=== PATIENT | female | born 2000 | race Caucasian/White ===

== ENCOUNTER 2023-05-05 20:43 | Emergency (ER) | payer OTHER, SELFPAY ==
[2023-05-05 21:10] VITALS: BP 120/83; PULSE 100; RESP 16; TEMP 36.4; O2SAT 100
[2023-05-05 22:28] LABS: Appearance Urine Clear (Clear); Bacteria Urine None Seen /hpf; Bilirubin Urine Negative (Negative); Blood Urine 2+ (Negative); Color Urine Yellow (Yellow); Glucose Urine UA 2+ mg/dL (Negative); Ketones Urine Negative (Negative); Leukocyte Esterase Ur Trace LEU/UL (Negative); Need Manual Microscopic Reviewed; Nitrate Urine Negative (Negative); Non Pathogenic Casts 0-2; Protein Urine Negative (Negative); Specific Grav Ur 1.007 (1.001-1.035); Squamous Epithelial Cell Urine Occasional /hpf (Few); Urobilinogen Urine 0.2 mg/dL (<2.0); WBC Urine 0-5 /hpf
[2023-05-05 22:29] LABS: Add Urine Microscopic? YES
== END 2023-05-06 00:41 | disposition left against medical advice (07) ==
LOC: ANHED 05-06 00:39
PROVIDERS: Emergency Provider Emergency Medicine
DX: N93.9 Abnormal uterine and vaginal bleeding, unspecified (principal)
CPT/HCPCS: 81001; 81025; 99199

== ENCOUNTER 2024-04-29 12:34 | Emergency (ER) | payer OTHER, SELFPAY ==
[2024-04-29 12:41] VITALS: BP 104/65; PULSE 125; RESP 20; TEMP 37.7; O2SAT 100
--- NOTE | 2024-04-29 12:43 | ED.GENADULT ---
HPI - General Adult General Chief complaint: Upper Respiratory Infection Stated complaint: Congestion/Sinus Pressure/Fever Time Seen by Provider: 04/29/24 12:43 Source: patient, RN notes reviewed and old records reviewed Mode of arrival: ambulatory Limitations: no limitations History of Present Illness HPI narrative: 23-year-old female to [facility] Care with complaint of body aches, fever, postnasal drainage since yesterday. Patient rating body aches 04/08. 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 Patient denies shortness of breath, chest pain, nausea, vomiting, diarrhea, abdominal pain. Patient tachycardic and febrile in triage. Patient able tolerate fluids by mouth. Patient resting comfortably in exam room, appearing acutely ill. Respirations even and nonlabored. Patient in no acute distress. Related Data Home Medications Medication Instructions Recorded Confirmed insulin lispro 100 unit/mL 04/29/24 subcutaneous solution (Humalog U-100 Insulin) norethindrone 1 mg-ethinyl tablet 04/29/24 estradiol 20 mcg (24)-iron 75 mg (4) tablet (Aurovela 24 Fe) secukinumab 300 mg/2 mL (150 mg subcut 04/29/24 mg/mL) subcutaneous pen injector (Cosentyx UnoReady Pen) sertraline 50 mg tablet mg 04/29/24 04/29/24 Allergies Allergy/AdvReac Type Severity Reaction Status Date / Time amoxicillin Allergy Hives Verified 04/29/24 12:37 Sulfa (Sulfonamide Allergy Hives Verified 04/29/24 12:37 Antibiotics) sulfamethoxazole Allergy Hives Verified 04/29/24 12:37 [From Bactrim] trimethoprim [From Bactrim] Allergy Hives Verified 04/29/24 12:37 Review of Systems Review of Systems: All systems reviewed & are unremarkable except as noted in HPI and below Constitutional: Constitutional: Reports as per HPI, Reports body ache(s) and Reports fever(s) Eyes: Eyes: Reports no additional eye complaints ENT: Reports as per HPI and Reports post nasal drip Cardiovascular: Cardiovascular: Reports no additional cardiovascular complaints, Denies chest pain and Denies dyspnea Respiratory: Respiratory: Reports no additional respiratory complaints, Denies cough and Denies dyspnea Musculoskeletal: Musculoskeletal: Reports as per HPI and Reports myalgias Neurologic: Reports system reviewed and no additional complaints, except as documented Psychiatric: Psychiatric: Reports no additional psychiatric complaints PMFSH Comments At the time of my signature, I reviewed and agree with the nursing past medical, surgical, social, and family history. There is no relevant family history pertinent to the patient complaint. Exam Const: General: cooperative, no acute distress, alert, ill appearing acutely, tired appearing, uncomfortable and well nourished Nutritional Appearance: well nourished Orientation/consciousness: patient oriented x3 Limitations: no limitations HENMT: Head: normal to inspection Ears: external ears normal and TM abnormal erythematous bilateral Face/Nose/Sinus: Normal external nose present, Normal nares present, normal facial exam, No erythema and No edema Face and sinus: normal facial exam, no erythema and no edema Mouth: Yes Normal oral and palatal mucosa present Throat: posterior oropharynx abnormal erythema and postnasal drainage Eyes: General: appearance normal, both eyes and all related structures Neck: Neck: normal visual inspection, full ROM and no meningeal signs Lymphatic: no lymphadenopathy noted and no lymphedema noted Chest: Chest palpation & inspection: normal inspection of the chest Resp: Effort & Inspection: normal respiratory effort and able to speak in complete sentences Auscultation: clear to auscultation bilaterally Cardio: Jugular venous distension: no JVD Rate: regular rate Rhythm: regular rhythm Back/Spine/Pelvis: Cervical Spine: cervical ROM normal Skin: General skin exam: normal color, no rashes or lesions noted and turgor normal Neuro: General: pa
== END 2024-04-29 13:19 | disposition home or self-care (01) ==
PROVIDERS: Emergency Provider Nurse Practitioner Family
DX: U07.1 COVID-19 (principal); H66.93 Otitis media, unspecified, bilateral; Z20.822 Contact with and (suspected) exposure to COVID-19; E11.9 Type 2 diabetes mellitus without complications; Z79.4 Long term (current) use of insulin; Z96.41 Presence of insulin pump (external) (internal); F41.9 Anxiety disorder, unspecified
CPT/HCPCS: 87426; 99213; G0463

== ENCOUNTER 2025-02-19 11:46 | Emergency (ER) | payer OTHER, SELFPAY ==
[2025-02-19 11:50] VITALS: BP 112/68; PULSE 120; RESP 14; TEMP 36.9; O2SAT 100
--- NOTE | 2025-02-19 11:54 | ED.URI ---
HPI - URI/Sore Throat General Chief Complaint: Upper Respiratory Infection Stated Complaint: bad cough Time Seen by Provider: 02/19/25 11:55 Source: patient and RN notes reviewed Mode of arrival: ambulatory Limitations: no limitations History of Present Illness HPI Narrative: 44-year-old female who is 5 months presents with concern for cough. Reports cough for 3 weeks. Reports she started getting a fever yesterday. She reports the cough got worse in the last 2 days. She reports some runny nose and stuffy nose, denies sore throat. She reports a history of asthma as a child. Denies any shortness of breath currently or in the last 3 weeks. MD elicited complaint: cough Related Data Home Medications ?Medication ?Instructions ?Recorded ?Confirmed ?Last Taken ?Type insulin lispro 100 unit/mL 04/29/24 Unknown History subcutaneous solution (Humalog U-100 Insulin) sertraline 50 mg tablet mg 04/29/24 04/29/24 Unknown History 02/19/25 Unknown History insulin glargine 100 unit/mL unit subcut 02/19/25 Unknown History subcutaneous solution (Lantus U-100 Insulin) Allergies Allergy/AdvReac Type Severity Reaction Status Date / Time amoxicillin Allergy Hives Verified 02/19/25 11:55 Sulfa (Sulfonamide Allergy Hives Verified 02/19/25 11:55 Antibiotics) sulfamethoxazole (From Allergy Hives Verified 02/19/25 11:55 Bactrim) trimethoprim (From Bactrim) Allergy Hives Verified 02/19/25 11:55 Review of Systems Review of Systems: CONSTITUTIONAL: Denies malaise, chills, sweats. Reports fever. EYES: Denies visual changes, redness, or discharge. ENT: Reports rhinorrhea, congestion. Denies sinus pain, otalgia and sore throat. CARDIOVASCULAR: Denies chest pain, palpitations, or edema. RESPIRATORY: Reports cough. Denies dyspnea. GASTROINTESTINAL: Denies abdominal pain, nausea, vomiting, diarrhea SKIN: Denies rash or itching. MUSCULOSKELETAL: Denies myalgia. NEUROLOGIC: Denies headache. All systems reviewed & are unremarkable except as noted in HPI and below PMFSH Comments At time of signature, agree with nursing past medical, surgical, social and family history. There is no relevant family history pertinent to the presenting complaint Exam Narrative: GENERAL: Well-appearing, well-nourished, and in no acute distress. HEAD: Normocephalic EYES: PERRLA, conjunctivae clear ENT: Nares clear. Mucous membranes moist. TM pearly unger with dull light reflex bilaterally; no tragal tenderness. Oropharynx not erythematous without lesions. Tonsils not enlarged and without exudate, no drooling, no hoarseness, no trismus, uvula midline. NECK: Supple. No lymphadenopathy CHEST: Scattered wheeze and scattered rhonchi, breath sounds equal. No rales, or stridor. No respiratory distress, speaks in full sentences. HEART: Regular rate and rhythm. No murmur heard. SKIN: Warm, dry, no rash. NEURO: Alert and oriented x3. PSYCH: Normal mood and affect Course Course Emergency Course: Patient is aware of diagnosis, understands and agrees to treatment plan. Anticipatory guidance given. Patient agrees to follow-up as directed and is aware of reasons to seek care at the emergency department. Portions of this record may have been created with voice recognition software Level of Care: Express Care Visit Vital Signs Vital signs: Reviewed. MDM - URI/Sore Throat MDM Narrative Medical decision making narrative: Differential diagnosis considered: Smith virus, strep pharyngitis, allergic rhinitis, upper respiratory tract infection, sinusitis, rhinosinusitis, nasopharyngitis. viral pharyngitis, otitis media, otitis externa, pneumonia, bronchitis, viral cough syndrome, viral syndrome, and influenza. Exam findings show no acute concerns or changes; patient is non-toxic appearing and is in no distress. Patient is appropriate for outpatient treatment and follow-up. Lab Data Attestation: I reviewed the patient's lab results. Critical Care Time Critical Care Time Critical Care Time: No Discharge Plan Discharge Clinical Impression: Lower respiratory tract infection Patient Disposition: Home Condition: Stable Instructions: Antibiotic Form, How to Use a Metered-Dose Inhaler (ED) Additional Instructions: Take medication as prescribed Recommend antihistamine such as Zyrtec or Zoei during the day Use inhaler as needed for cough, wheezing, shortness of breath or chest tightness. Also, recommend symptomatic treatment includes: rest, fluids, and increase humidity of the air at home. Recommend Acetaminophen as directed on the bottle to reduce fever, pain, headache. Avoid smoking/second-hand smoke. Please schedule a follow-up visit with your personal physician for further evaluation and treatment within 3-5days. If your symptoms persist, change or worsen significantly before you can contact your personal physician then please, without delay, go to the emergency department for further evaluation. Patient Language: Maldivian Prescriptions: New azithromycin [Zithromax Z-Jaspal] 250 mg tablet See Rx Instructions .ROUTE .COMPLEX Qty: 6 0RF Rx Instructions: take 500 mg today (day 1), then 250 mg for 4 days (days 2-5) albuterol sulfate 90 mcg/actuation HFA aerosol inhaler 2 puff INHALATION QID PRN (Reason: shortness of breath or wheezing) Qty: 8.5 0RF No Action insulin lispro [Humalog U-100 Insulin] 100 unit/mL solution sertraline 50 mg tablet insulin glargine [Lantus U-100 Insulin] 100 unit/mL solution SUBCUT Follow-up/Referrals: PHYSICIAN,SALESPERSON [facility] [Primary Care Provider] - Time of Disposition: 12:03
== END 2025-02-19 12:07 | disposition home or self-care (01) ==
PROVIDERS: Emergency Provider Nurse Practitioner
DX: J22 Unspecified acute lower respiratory infection (principal); Z79.4 Long term (current) use of insulin
CPT/HCPCS: 99213; G0463